=== PATIENT | female | born 1965 | race Caucasian/White ===

== ENCOUNTER 2018-05-08 05:58 | Observation (INO) | payer OTHER ==
[2018-05-08] MEDS ORDERED: LIDOCAINE 2% (SDV) 5 ML INJ (06:43)
[2018-05-08] MEDS ORDERED: CEFAZOLIN 1 GM INJ (06:43)
[2018-05-08] MEDS ORDERED: PROPOFOL 20 ML (06:43)
[2018-05-08] MEDS ORDERED: MIDAZOLAM 1 MG/ML 2 ML INJ (06:43)
[2018-05-08] MEDS ORDERED: ROCURONIUM 50 MG INJ (06:43)
[2018-05-08] MEDS ORDERED: FENTAnyl 50 MCG/ML VIAL ×2 (06:43→08:59)
[2018-05-08] MEDS ORDERED: KETAMINE (100 MG/ML) 5 ML VIAL (07:00)
[2018-05-08] MEDS ORDERED: ACETAMINOPHEN 1000MG/100ML IV 100 ML (08:02)
[2018-05-08] MEDS ORDERED: PROPOFOL 100 ML (08:05)
[2018-05-08] MEDS ORDERED: ONDANSETRON 4 MG INJ (08:10)
[2018-05-08] MEDS ORDERED: METOCLOPRAMIDE 10 MG INJ (08:10)
[2018-05-08] MEDS ORDERED: FAMOTIDINE 20 MG INJ (08:10)
[2018-05-08] MEDS ORDERED: DEXAMETHASONE 4 MG/ML 1 ML INJ (08:10)
[2018-05-08] MEDS: BUPIVACAINE 0.25%/EPI (SDV) 30 ML INJ (08:13)
[2018-05-08] MEDS: POLYMYXIN/BACITRACIN 1L IRRIG (08:13)
[2018-05-08] MEDS: THROMBIN 5000 UNIT VIAL (08:13)
[2018-05-08] MEDS ORDERED: MAGNESIUM SULFATE 1 GM/D5W 100 ML (08:21)
[2018-05-08] MEDS ORDERED: LABETALOL HCL 20MG INJ (08:59)
[2018-05-08] MEDS ORDERED: HYDROmorphONE 1 MG/5 ML IV SYRINGE IV ×3 (09:30)
[2018-05-08] MEDS ORDERED: MEPERIDINE 25 MG INJ IV (09:30)
[2018-05-08] MEDS ORDERED: LABETALOL HCL 20MG INJ IV (09:30)
[2018-05-08] MEDS ORDERED: ONDANSETRON 4 MG INJ IV ×2 (09:30→10:30)
[2018-05-08] MEDS ORDERED: oxyCODONE (CR) 10 MG TAB [oxyCONTIN] PO (09:30)
[2018-05-08] MEDS: GELATIN SIZE 100 SPONGE (09:36)
[2018-05-08] MEDS ORDERED: SUGAMMADEX SODIUM 200 MG/2 ML VIAL IV (09:53)
[2018-05-08] MEDS ORDERED: KETOROLAC 30 MG INJ (10:05)
[2018-05-08] MEDS ORDERED: ACETAMINOPHEN 325 MG TAB PO (10:30)
[2018-05-08] MEDS ORDERED: NALOXONE (0.4 MG/ML) INJ IV (10:30)
[2018-05-08] MEDS ORDERED: PROCHLORPERAZINE 10 MG TAB PO (10:30)
[2018-05-08] MEDS ORDERED: NACL 0.9% 3 ML SYG IV (10:30)
[2018-05-08] MEDS ORDERED: HYDROCODONE/APAP (5/325) TAB PO ×2 (10:30)
[2018-05-08] MEDS ORDERED: HYDROmorphONE 0.5 MG/0.5 ML SYG IV (10:30)
[2018-05-08] MEDS: CEFAZOLIN 1 GM/50 ML (PMX) 50 ML IVPB ×2 (11:47→17:56)
[2018-05-08] MEDS: LACTATED RINGER'S 1,000 ML IV ×2 (12:25→22:30)
[2018-05-08] MEDS: SOD CHLORIDE 0.9% 1,000 ML IV (14:01)
[2018-05-08] MEDS: SULFASALAZINE 500 MG TAB PO (17:56)
[2018-05-09] MEDS: CEFAZOLIN 1 GM/50 ML (PMX) 50 ML IVPB ×2 (00:17→05:28)
[2018-05-09] MEDS: SOD CHLORIDE 0.9% 1,000 ML IV (00:48)
[2018-05-09 05:05] LABS: ADD MAN DIFF? NO; BASOPHILS % 0.2 % (0.0-2.0); HEMATOCRIT 31.3 % (37.0-47.0); HEMOGLOBIN 10.1 g/dl (12.0-16.0); LYMPHOCYTES % 17.2 % (15.0-51.0); MEAN CORPUSCULAR HEMOGLOBIN 28.1 pg (29.0-33.0); MEAN CORPUSCULAR HGB CONC 32.3 g/dl (32.0-37.0); MEAN CORPUSCULAR VOLUME 87.2 fl (82.0-101.0); MEAN PLATELET VOLUME 10.3 fl (7.4-10.4); MONOCYTE # 0.4 10^3/ul (0.3-0.9); MONOCYTES % 6.6 % (0.0-11.0); NEUTROPHIL # 4.4 10^3/ul (1.6-7.5); NEUTROPHILS % 75.7 % (39.0-77.0); PLATELET COUNT 249 10^3/UL (140-415); RED BLOOD COUNT 3.59 10^6/ul (4.20-5.40); RED CELL DISTRIBUTION WIDTH 13.1 % (11.5-14.5)
[2018-05-09 05:05] LABS: WHITE BLOOD COUNT 5.8 10^3/ul (4.8-10.8)
[2018-05-09] MEDS: PANTOPRAZOLE (EC) 40 MG TAB PO (05:28)
[2018-05-09 06:24] LABS: ANION GAP 10 (8-16); BLOOD UREA NITROGEN 8 mg/dl (7-20); CALCIUM 8.6 mg/dl (8.4-10.2); CARBON DIOXIDE 22 mmol/L (21-31); CHLORIDE 115 mmol/L (97-110); CREATININE 0.58 mg/dl (0.44-1.00); GLUCOSE 132 mg/dl (70-220); MAGNESIUM 2.2 mg/dl (1.7-2.5); PHOSPHORUS 4.3 mg/dl (2.5-4.9); SODIUM 143 mmol/L (135-144)
[2018-05-09] MEDS: LACTATED RINGER'S 1,000 ML IV (07:10)
[2018-05-09] MEDS ORDERED: predniSONE 1 MG TAB PO (09:00)
[2018-05-09] MEDS: SULFASALAZINE 500 MG TAB PO ×2 (09:03→12:23)
[2018-05-09] MEDS: predniSONE 5 MG TAB PO (09:03)
== END 2018-05-09 16:55 | disposition home or self-care (01) ==
LOC: SUR 05:58 → SDS 05:58 → MS1 12:11 → SUR 10:25 → MS1 10:25
DX: M48.061 Spinal stenosis, lumbar region without neurogenic claudication (principal); M43.16 Spondylolisthesis, lumbar region; M51.16 Intervertebral disc disorders with radiculopathy, lumbar region; M06.9 Rheumatoid arthritis, unspecified; E66.01 Morbid (severe) obesity due to excess calories; Z68.35 Body mass index [BMI] 35.0-35.9, adult; E66.9 Obesity, unspecified
CPT/HCPCS: 63047; 72110; 80048; 83735; 84100; 85025; 86850; 86900; 86901; 97110; 97116; 97161; 97530

== ENCOUNTER 2018-06-21 17:27 | Emergency (ER) | payer OTHER ==
[2018-06-21] MEDS: DEXAMETHASONE 10 MG/ML 1 ML INJ PO (18:46)
[2018-06-21] MEDS: KETOROLAC 30 MG INJ IM (18:46)
== END 2018-06-21 19:45 | disposition home or self-care (01) ==
LOC: FTE 17:27
DX: M25.561 Pain in right knee (principal); M25.551 Pain in right hip
CPT/HCPCS: 72100; 73510; 73562; 81025; 96372; 99284-25